=== PATIENT | female | born 1980 | race Hispanic/Latino ===

== ENCOUNTER 2018-11-15 18:24 | Emergency (ER) | payer OTHER ==
[~2018-11-15] VITALS: Ht 157.5 cm; Wt 127.0 kg
[~2018-11-15 18:24] MED LIST: CAVAN-FOLATE D1 EACH PO; MAGNESIUM OXID250 MG PO; VITAMIN D5000 UNIT PO
== END 2018-11-15 19:05 | disposition home or self-care (01) ==
LOC: ED 18:24
DX: O99.89 Other specified diseases and conditions complicating pregnancy, childbirth and the puerperium (principal); R51 Headache; R50.9 Fever, unspecified; R11.0 Nausea; Z3A.21 21 weeks gestation of pregnancy

== ENCOUNTER 2019-03-24 04:39 | Inpatient (IN) | payer OTHER ==
[~2019-03-24] VITALS: Ht 157.5 cm; Wt 138.0 kg
--- NOTE | 2019-03-24 08:18 | PR ---
[facility] [address] [place] [place] [address] Signed Progress Notes IP Datetime Report Generated by JOSE: 03/24/2019 08:18 PROGRESS NOTES: [id number] Impression: Reassuring heart rate; Slow Progression of Labor Other Procedures: attempted controlled AROM Plan: Continue present management Informed Consent Obtain: Vaginal Delivery; Risks, Benefits and Alternatives Discussed VITAL SIGNS: [id number] Vital Signs: Reviewed; Within Normal Limits VS Notable Details: HTN--not severe EXAM: [id number] Dilatation: 5.0 Effacement: 75 Station: -3 Uterine Contractions: q 4 to 5 min MEMBRANES: [id number] Membrane Status: Intact ROM Note: attempted but no fluid seen Comments: No real progress. Discussion carried out for controlled AROM but could not be done even with the pudendal trumpet and spinal needle. Will continue close observation. Fetus A: [id number] FHR Baseline: 130 Variability: Moderate 6-25bpm Accelerations: 15X15 Decelerations: None FHR Category: Category I Presentation: Vertex Comments on Fetus A: No evidence of metabolic acidosis Fetus B: [id number] Signing Physician: Carol Jaeger MD Copies: ~ *Electronically Signed* 03/24/19817 CAROL JAEGER MD PATIENT NAME: SAMUEL JONES PROGRESS NOTE DATE OF : 80 PHYSICIAN: CAROL JAEGER MD RPT #: [id number] REPORT IS CONFIDENTIAL AND NOT TO BE RELEASED WITHOUT AUTHORIZATION
--- NOTE | 2019-03-24 09:36 | PR ---
[facility] [address] [place], [place] [address] Signed Progress Notes IP Datetime Report Generated by JOSE: 03/24/2019 09:35 PROGRESS NOTES: [id number] Impression: Normal progression of labor; Reassuring heart rate Procedures: Sterile Vag Exam Other Procedures: attempted controlled AROM Plan: Continue present management Informed Consent Obtain: Vaginal Delivery VITAL SIGNS: [id number] Vital Signs: Reviewed; Within Normal Limits VS Notable Details: HTN--not severe EXAM: [id number] Dilatation: 8.0 Effacement: 80 Station: -1 Uterine Contractions: q2 minutes MEMBRANES: [id number] Membrane Status: Intact ROM Note: attempted but no fluid seen Comments: Called to patient's room for evaluation. Covering patient for Dr. Mil MCDONALD. Pt received epidural from anesthesia and now comfortable. Pt now 8cm with vertex well engaged and much lower. Bulging bag of crowder noted and intact. Discussed expectant management. Discussed . All questions answered Fetus A: [id number] FHR Baseline: 140 Variability: Moderate 6-25bpm Accelerations: 15X15 Decelerations: Early FHR Category: Category I Presentation: Vertex Comments on Fetus A: No evidence of metabolic acidosi Fetus B: [id number] Signing Physician: Robert Robbins DO Copies: ~ *Electronically Signed* 03/24/19 0935 ROBERT ROBBINS DO PATIENT NAME: SAMUEL JONES CATY PROGRESS NOTE DATE OF : 80 PHYSICIAN: ROBERT ROBBINS DO RPT #: [id number] REPORT IS CONFIDENTIAL AND NOT TO BE RELEASED WITHOUT AUTHORIZATION
--- NOTE | 2019-03-24 10:51 | PR ---
[facility] [address] [place], [place] [address] Signed Progress Notes IP Datetime Report Generated by JOSE: 03/24/2019 10:51 PROGRESS NOTES: [id number] Impression: Normal progression of labor; Reassuring heart rate Procedures: Artificial ROM; Sterile Vag Exam Other Procedures: attempted controlled AROM Plan: Continue present management Informed Consent Obtain: Vaginal Delivery VITAL SIGNS: [id number] Vital Signs: Reviewed; Within Normal Limits VS Notable Details: HTN--not severe EXAM: [id number] Dilatation: 9.0 Effacement: 90 Station: -2 Uterine Contractions: q 1 to 4 min MEMBRANES: [id number] Membrane Status: Intact ROM Note: attempted but no fluid seen Comments: Comfortable with epidural and has progressed well. Will continue. Fetus A: [id number] FHR Baseline: 140 Variability: Moderate 6-25bpm Accelerations: 15X15 Decelerations: None FHR Category: Category I Presentation: Vertex Comments on Fetus A: No evidence of metabolic acidosis Fetus B: [id number] Signing Physician: Carol Jaeger MD Copies: ~ *Electronically Signed* 03/24/19 1051 CAROL JAEGER MD PATIENT NAME: SAMUEL JONES PROGRESS NOTE DATE OF : 80 PHYSICIAN: CAROL JAEGER MD RPT #: [id number] REPORT IS CONFIDENTIAL AND NOT TO BE RELEASED WITHOUT AUTHORIZATION
--- NOTE | 2019-03-25 11:33 | PR ---
[facility] [address] [facility] [place], [place] [address] Signed PP Progress Notes Datetime Report Generated by CPRoman: 03/25/2019 11:33 SUBJECTIVE: [id number] Pain: Within normal limits Vital Signs: [id number] Vital Signs: Reviewed; Within Normal Limits EXAM: [id number] Cardiovascular: Not Done Respiratory: Not Done Abdomen/Uterus: Abnormal Lochia: Normal Vulva/Perineum: Not Done Breasts: Not Done CVA Tenderness: Not Done Extremities: Abnormal Incision: Not Applicable Progress: Abnormal Exam Comments: Fundus firm, NT @ U+2. Moderate LE edema. H/H 10.8/32.4, WBC 9.6, plat 110k IMPRESSION/PLAN/PROCEDURES: [id number] Impression: Normal progression; difficulties Plan: Continue present management Progress Notes: Overall doing well but not breast feeding well. Discussed this and she will work on increasing her breast feeding and using the pump and minimize formula use. The edema is very common and should resolve over time. Diuretics are not indicated at this time. Signing Physician: Mikaela Jaeger MD Copies: ~ *Electronically Signed* 03/25/19 1133 MIKAELA JAEGER MD PATIENT NAME: SAMUEL JONES PROGRESS NOTE DATE OF : 80 PHYSICIAN: MIKAELA JAEGER MD RPT #: [id number] REPORT IS CONFIDENTIAL AND NOT TO BE RELEASED WITHOUT AUTHORIZATION
[2019-03-25] MEDS ORDERED: VENTOLIN HFA18 GM INH (23:10)
--- NOTE | 2019-03-26 10:31 | PR ---
[facility] [address] [place], [place] [address] Signed PP Progress Notes Datetime Report Generated by JOSE: 03/26/2019 10:31 SUBJECTIVE: [id number] Pain: Within normal limits Pain Comments: has the flu by testing after ER visit last night. Nausea/Vomiting Comments: No one in the family has had flu vaccination Vital Signs: [id number] Vital Signs: Reviewed; Within Normal Limits EXAM: [id number] Cardiovascular: Not Done Respiratory: Not Done Abdomen/Uterus: Abnormal Lochia: Normal Vulva/Perineum: Not Done Breasts: Not Done CVA Tenderness: Not Done Extremities: Abnormal Incision: Not Applicable Progress: Abnormal Exam Comments: Fundus firm, NT @ U+1. LE 2+ edema, nontender. IMPRESSION/PLAN/PROCEDURES: [id number] Impression: Normal progression Other Impression: Flu exposure on Tamiflu prophylaxis Plan: Discharge Progress Notes: She is doing well but I am concerned about her going home to a house where no one has had the flu shot and her is actively ill. The other family members should receive Tamiflu prophylaxis as well. Her baby is at significant risk. I advise her not to go home at this point or alternatively have everyone else leave. Signing Physician: Carol Jaeger MD Copies: ~ *Electronically Signed* 03/26/19 1031 CAROL JAEGER MD PATIENT NAME: SAMUEL JONES PROGRESS NOTE DATE OF : 80 PHYSICIAN: CAROL JAEGER MD RPT #: [id number] REPORT IS CONFIDENTIAL AND NOT TO BE RELEASED WITHOUT AUTHORIZATION
== END 2019-03-26 15:15 | disposition home or self-care (01) | DRG 807 ==
LOC: FBCO 04:39 → FBC 05:17
PROVIDERS: ADMIT Obstetrics & Gynecology
PROC: 10E0XZZ Delivery of Products of Conception, External Approach (ICD-10-PCS; principal; 2019-03-24)
PROC: 0KQM0ZZ Repair Perineum Muscle, Open Approach (ICD-10-PCS; 2019-03-24)
PROC: 10907ZC Drainage of Amniotic Fluid, Therapeutic from Products of Conception, Via Natural or Artificial Opening (ICD-10-PCS; 2019-03-24)
PROC: 00HU33Z Insertion of Infusion Device into Spinal Canal, Percutaneous Approach (ICD-10-PCS; 2019-03-24)
PROC: 3E0R3BZ Introduction of Anesthetic Agent into Spinal Canal, Percutaneous Approach (ICD-10-PCS; 2019-03-24)
DX: O14.04 Mild to moderate pre-eclampsia, complicating childbirth (principal); Z37.0 Single live birth; Z3A.39 39 weeks gestation of pregnancy; O99.214 Obesity complicating childbirth; E66.01 Morbid (severe) obesity due to excess calories; O26.03 Excessive weight gain in pregnancy, third trimester; O76 Abnormality in fetal heart rate and rhythm complicating labor and delivery; O99.824 Streptococcus B carrier state complicating childbirth; O70.1 Second degree perineal laceration during delivery; O28.5 Abnormal chromosomal and genetic finding on antenatal screening of mother; O99.284 Endocrine, nutritional and metabolic diseases complicating childbirth; E88.81 Metabolic syndrome and other insulin resistance; Z82.79 Family history of other congenital malformations, deformations and chromosomal abnormalities; Z20.828 Contact with and (suspected) exposure to other viral communicable diseases
CPT/HCPCS: 01960; 85027; A9270; J1650; J2405; J2540; J2795; J7121